=== PATIENT | female | born 1990 | race Caucasian/White ===

== ENCOUNTER 2016-11-27 17:09 | Emergency (ER) | payer SELFPAY ==
[~2016-11-27] VITALS: Ht 152.4 cm; Wt 61.0 kg
[2016-11-28] MEDS ORDERED: ONDANSETRON HCL 4MG/2ML VIAL IV STA (00:27)
[2016-11-28] MEDS ORDERED: SODIUM CHLORIDE 0.9% 1,000 ML IV ONE (00:27)
[2016-11-28] MEDS ORDERED: MECLIZINE 25MG TABLET PO ONE (00:30)
[2016-11-28 00:55] LABS: BASOPHILS % 0.3 % (0.0-2.0); EOSINOPHILS % 0.4 % (0.0-5.0); HEMATOCRIT. 38.5 % (36.0-48.0); HEMOGLOBIN. 12.9 g/dL (12.0-16.0); LYMPHOCYTES % 22.8 % (20.0-50.0); MEAN CORPUSCULAR HEMOGLOBIN 30.7 pg (28.0-32.0); MEAN CORPUSCULAR VOLUME 91.9 fL (81.0-99.0); MEAN PLATELET VOLUME 9.1 fl (7.4-10.4); MONOCYTES % 6.7 % (2.0-8.0); NEUTROPHILS % 69.8 % (40.0-76.0); PLATELET 341 x1000/uL (130-400); RED BLOOD CELL COUNT 4.19 mill/uL (4.2-5.4); RED CELL DISTRIBUTION WIDTH 12.7 % (11.6-14.6)
[2016-11-28 01:01] LABS: CHLORIDE 106 mEq/L (98-107)
[2016-11-28 01:08] LABS: HCG SCREEN NEGATIVE
[2016-11-28 01:10] LABS: CARBON DIOXIDE 26 mEq/L (21-32)
[2016-11-28 02:02] VITALS: BP 123/82
== END 2016-11-28 02:04 | disposition home or self-care (01) ==
LOC: ER 20:42
DX: H81.10 Benign paroxysmal vertigo, unspecified ear (principal); R03.0 Elevated blood-pressure reading, without diagnosis of hypertension
CPT/HCPCS: 36415; 80053; 84703; 85025; 96361; 96374; 99284; J2405; J7030; Z7610; J8597